=== PATIENT | female | born 1955 | race Caucasian/White ===

== ENCOUNTER 2020-08-09 11:01 | Outpatient (REF) | payer MEDICARE, BC, SELFPAY ==
--- NOTE | ~2020-08-09 | MM_ITS ---
EXAMINATION: MM SCREENING DIGITAL BREAST TOMOSYNTHESIS, BILATERAL CLINICAL INFORMATION: Screening. Asymptomatic. The lifetime risk of breast cancer based on the Tyrer-Cuzick Model is 5%. COMPARISON: Mammography: 03/09/2018, 01/08/2016 TECHNIQUE: Digital breast tomosynthesis is performed in both the craniocaudal and mediolateral oblique views along with computer-aided detection (CAD). Synthesized 2D images are generated from the tomosynthesis. FINDINGS: There are scattered areas of fibroglandular density (ACR BI-RADS breast composition Category b). There are no significant masses, abnormal calcifications, or other abnormalities. There are scattered calcifications present, similar in number and distribution. 2 biopsy clip markers are present mid upper outer left breast. The axilla and skin contours are unremarkable. There are no significant changes. MM/MM tomosynthesis screening BI IMPRESSION: No mammographic evidence of malignancy. ASSESSMENT: BI-RADS 2: Benign RECOMMENDATION: Routine annual mammography screening. This patient's information was entered into a reminder system with a target due date for their next mammogram.
== END 2020-08-09 11:02 | disposition home or self-care (01) ==
LOC: HO.MAMMO 11:01
PROVIDERS: PCP Internal Medicine; Visit Provider Internal Medicine
DX: Z12.31 Encounter for screening mammogram for malignant neoplasm of breast (principal)
CPT/HCPCS: 77063; 77067

== ENCOUNTER → 2023-04-05 10:45 | Outpatient (BNV) | payer MEDICARE, SELFPAY | PROVIDERS: Visit Provider Radiology Diagnostic Radiology | DX: Z12.31 Encounter for screening mammogram for malignant neoplasm of breast (principal) | CPT/HCPCS: 77063; 77067 ==

== ENCOUNTER 2023-04-05 10:49 | Outpatient (REF) | payer MEDICARE, SELFPAY ==
--- NOTE | ~2023-04-05 | MM_ITS ---
EXAMINATION: MM SCREENING DIGITAL BREAST TOMOSYNTHESIS, BILATERAL CLINICAL INFORMATION: Screening. Asymptomatic. COMPARISON: Mammography: This study is compared with prior exams dating back to 2013. TECHNIQUE: Digital breast tomosynthesis is performed in both the craniocaudal and mediolateral oblique views along with computer-aided detection (CAD). Synthesized 2D images are generated from the tomosynthesis. FINDINGS: There are scattered areas of fibroglandular density (ACR BI-RADS breast composition Category b). There are no significant masses, abnormal calcifications, or other abnormalities. There are 2 tissue markers present in the left breast from prior benign percutaneous biopsies. MM/MM tomosynthesis screening BI IMPRESSION: No mammographic evidence of malignancy. ASSESSMENT: BI-RADS BI-RADS 2 - Benign Findings RECOMMENDATION: Routine annual mammography screening. 1 year F/U This examination should not preclude the clinical evaluation of a suspicious palpable abnormality. This patient's information was entered into a reminder system with a target due date for their next mammogram.
== END 2023-04-05 10:50 | disposition home or self-care (01) ==
LOC: HO.MAMMO 10:49
PROVIDERS: Visit Provider Internal Medicine
DX: Z12.31 Encounter for screening mammogram for malignant neoplasm of breast (principal)
CPT/HCPCS: 77063; 77067

== ENCOUNTER 2023-09-08 12:55 | Outpatient (AMB) | payer MEDICARE, SELFPAY ==
--- NOTE | 2023-09-08 12:57 | A.OFFVIS_ITS ---
Vital Signs 09/08/23 12:59 Height 5 ft 4.09 in Weight 155 lb 6.814 oz BMI 26.6 BP 122/80 Blood Pressure Location Rt brachial Position Sitting Pulse 77 Pulse Source Pulse Oximeter Pulse Oximetry (%) 95 Oxygen Delivery Method Room Air Intake Visit Reasons: Joint Pain/medicare inactive Intake Note: New patient, externally referred by YIGN Portillo, presents to office today for joint pain. Joints affected: wrists, left middle finger, left ring finger, right index finger, right knee, left hip Pain began approx: 2 months ago Regional Manager Required: No Accompanied by: Self / Same As Patient Allergies amoxicillin Allergy (Unknown, Verified 09/08/23 13:01) Unknown nitrofurantoin [From Macrobid] Allergy (Unknown, Verified 09/08/23 13:01) Unknown Sulfa (Sulfonamide Antibiotics) Allergy (Unknown, Verified 09/08/23 13:01) Unknown HPI Comments Details: Ms. Zheng 68-year-old female, here on referral by PCP, presents today for evaluation of new onset hand and wrist pain. She has been experiencing pain in her hands, knees, shoulders, feet and hips pain. Most of her pains and hand swelling started about 2 months ago. It is usually worse in the a.m.. She describes morning stiffness that last more than an hour. She has also had swelling around her knees. She said sometimes there is redness and warmth over the joints. She has no improvement from [id number] pain relievers and has not tried any other form of treatment. She denies recent injury or trauma to the joints. She has PMH of hypothyroidism and hyperlipidemia --Mom has RA --new to patient - worse in the morning/ Could not move wrist at one point; --Takes Ibuprofen 200 mg x 2 at a time. - helps to take the edge off --hand pain started in Jun 2023, --upper arms hurt and can not lift right shoulders --diffuse swelling and tenderness to MCP bilateral 2nd and 3rd --Visitors from [place] and [facility] [place] --Son has gout. --RF negative, sed and CRP normal, uric acid normal --denies a symptom symptoms of CTD, denies red warm swollen joints elsewhere [facility] Medical History (Updated 09/23/23 @ 08:02 by TERRELL Brenner-BC) Bilateral foot pain Bilateral knee pain Bilateral hand swelling Insomnia Hypothyroidism, unspecified Hyperlipidemia, unspecified Anxiety Allergic rhinitis Surgical History (Updated 09/01/23 @ 14:45 by KULWINDER Rodríguez) History of surgery H/O hysterectomy with unilateral oophorectomy Hx of appendectomy H/O colonoscopy Family History (Updated 09/08/23 @ 13:00 by KULWINDER Rodríguez) Mother Type 2 diabetes mellitus without complication Brother Alcohol abuse Father Parkinson disease Social History (Updated 09/08/23 @ 13:00 by KULWINDER Rodríguez) Household Members: Spouse Alcohol intake: current Alcohol intake frequency: a few times a week Alcohol type: wine and other Patient Tobacco Use Status: Former Tobacco user 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 External ear normal. NOSE/SINUS:? Airflow through both nares, no nasal discharge, no bleeding THROAT:? Oral mucosa moist, no ulcerations NECK:? No thyromegaly or masses, no adenopathy, trachea midline. HEART:? Regular rhythm, S1-S2 heard, no murmurs, rubs or gallops. LUNG:? Clear to percussion and auscultation EXTREMITIES:? No edema, no calf tenderness, normal peripheral pulses. NEURO:? Oriented and alert x3.? No focal weakness.? Reflexes symmetric.? Gait normal. SKIN:? There are no skin lesions evident. No objective signs of Raynaud's phenomenon. JOINT EXAM: Cervical Spine:.? Full range of motion without pain; no tenderness. Thoracic Spine:.? No scoliosis.? No tenderness on palpation. Lumbar Spine:.? Alignment normal.? Full range of motion without pain, no tenderness. Chest Wall:.? No tenderness, swelling, increased warmth or erythema. Hands:.? Normal range of motion with tenderness, trace swelling to bilateral 2nd and 3rd MCP, but no increased warmth or erythema. Able to make a closed fist and has a some decrease in senior front end engineer strength. Wrists:.? Normal pain-free range of motion without tenderness, swelling, increased warmth or erythema. Elbows:. Normal pain-free range of motion without tenderness, swelling, increased warmth or erythema. Shoulders:.?? Full range of motion without pain. No tenderness, weakness, swelling, increased warmth or erythema. Hips:.? Full range of motion without pain. Hip bursa:.? No tenderness. Knees:.?? Normal pain-free range of motion without tenderness, swelling, increased warmth or erythema.? There is no effusion or crepitation Ankles:.? Normal pain-free range of motion without tenderness, swelling, increased warmth or erythema. Feet:.? Normal pain-free range of motion without tenderness, swelling, increased warmth or erythema. Tender points:? No tenderness to digital palpation at the occiput, trapezius, second rib, lateral epicondyle, knees, greater trochanter and gluteal area bilaterally. Results Reviewed Results Reviewed: 08/05/2023 Lyme negative BMP grossly normal TSH 5.0 (4.2) Urine grossly normal with trace albumin and trace leukocyte CBC grossly normal Uric acid 5.0 (7.5) CRP negative Assessment & Plan Assessment & Plan (1) Bilateral hand swelling: Code(s): M79.89 - Other specified soft tissue disorders Category: Medical (2) Pain of joint of both hands: Code(s): M25.541 - Pain in joints of right hand; M25.542 - Pain in joints of left hand (3) Bilateral knee pain: Code(s): M25.561 - Pain in right knee; M25.562 - Pain in left knee Category: Medical Qualifiers: Chronicity: chronic Qualified Code(s): M25.561 - Pain in right knee; M25.562 - Pain in left knee; G89.29 - Other chronic pain (4) Bilateral foot pain: Code(s): M79.671 - Pain in right foot; M79.672 - Pain in left foot Category: Medical Plan The present presents with swelling bilateral to 2nd and 3rd MCP. This is new onset and she offers that it may be due to the stress of her visitors at home. She does not have the clinical presentation of an underlying connective tissue disease, but this may be chondrocalcinosis but chondrocalcinosis never normally that have bilateral presentation simultaneously. Her uric acid level is normal and so is less likely gout. This can also be osteoarthritis. I will obtain a complete rheumatology panel and have some x-rays done for further evaluation. She also offers complaints with regards to her feet and knees which are unrelated to the onset of her hands swelling so I will obtain x-rays to evaluate for the extent of osteoarthritis. Orders: Orders Erythrocyte Sedimentation Rate 09/08/23 M25.541 - Pain in joints of right hand, M25.542 - Pain in joints of left hand, M79.89 - Other specified soft tissue disorders KLEBER Reflex Titer and Pattern 09/08/23 M25.541 - Pain in joints of right hand, M25.542 - Pain in joints of left hand, M79.89 - Other specified soft tissue disorders Anti-Centromere B Antibodies 09/08/23 M25.541 - Pain in joints of right hand, M25.542 - Pain in joints of left hand, M79.89 - Other specified soft tissue disorders Anti Extractable Nuclear Ag 09/08/23 M25.541 - Pain in joints of right hand, M25.542 - Pain in joints of left hand, M79.89 - Other specified soft tissue disorders Complement C3 09/08/23 M25.541 - Pain in joints of right hand, M25.542 - Pain in joints of left hand, M79.89 - Other specified soft tissue disorders Comprehensive Met. Panel 09/08/23 M25.541 - Pain in joints of right hand, M25.542 - Pain in joints of left hand, M79.89 - Other specified soft tissue disorders Creatine Kinase Total 09/08/23 M25.541 - Pain in joints of right hand, M25.542 - Pain in joints of left hand, M79.89 - Other specified soft tissue disorders Immunofixation Pnl, Serum 09/08/23 M25.541 - Pain in joints of right hand, M25.542 - Pain in joints of left hand, M79.89 - Other specified soft tissue disorders Immunoglobulins,IgG IgA IgM 09/08/23 M25.541 - Pain in joints of right hand, M25.542 - Pain in joints of left hand, M79.89 - Other specified soft tissue disorders Scleroderma 70 Antibody 09/08/23 M25.541 - Pain in joints of right hand, M25.542 - Pain in joints of left hand, M79.89 - Other specified soft tissue disorders Sjogren's Antibodies 09/08/23 M25.541 - Pain in joints of right hand, M25.542 - Pain in joints of left hand, M79.89 - Other specified soft tissue disorders Protein Electrophoresis, Serum 09/08/23 M25.541 - Pain in joints of right hand, M25.542 - Pain in joints of left hand, M79.89 - Other specified soft tissue disorders XR hand RT min 3V 09/08/23 M79.89 - Other specified soft tissue disorders, M25.561 - Pain in right knee, M25.562 - Pain in left knee Anti DNA DS Antibody 09/08/23 M25.541 - Pain in joints of right hand, M25.542 - Pain in joints of left hand, M79.89 - Other specified soft tissue disorders Complement C4 09/08/23 M25.541 - Pain in joints of right hand, M25.542 - Pain in joints of left hand, M79.89 - Other specified soft tissue disorders Complete Blood Count Auto Diff 09/08/23 M25.541 - Pain in joints of right hand, M25.542 - Pain in joints of left hand, M79.89 - Other specified soft tissue disorders C Reactive Protein 09/08/23 M25.541 - Pain in joints of right hand, M25.542 - Pain in joints of left hand, M79.89 - Other specified soft tissue disorders XR hand LT min 3V 09/08/23 M79.89 - Other specified soft tissue disorders, M25.561 - Pain in right knee, M25.562 - Pain in left knee XR knee RT 3V 09/08/23 M79.89 - Other specified soft tissue disorders, M25.561 - Pain in right knee, M25.562 - Pain in left knee XR knee LT 3V 09/08/23 M79.89 - Other specified soft tissue disorders, M25.561 - Pain in right knee, M25.562 - Pain in left knee Coding Level of Care Code New Pt Level 4 (47330) Diagnoses Bilateral hand swelling M79.89 Pain of joint of both hands M25.541; M25.542 Chronic pain of both knees M25.561; M25.562; G89.29 Chronicity: chronic Bilateral foot pain M79.671; M79.672
[2023-09-08 12:59] VITALS: BP 122/80; PULSE 77; O2SAT 95; BMI 26.6
== END 2023-09-08 13:47 | disposition home or self-care (01) ==
PROVIDERS: PCP Internal Medicine; Referring Provider Internal Medicine; Visit Provider Nurse Practitioner Family
DX: M79.89 Other specified soft tissue disorders (principal); M25.541 Pain in joints of right hand; M25.542 Pain in joints of left hand; M25.561 Pain in right knee; M25.562 Pain in left knee; G89.29 Other chronic pain; M79.671 Pain in right foot; M79.672 Pain in left foot
CPT/HCPCS: 99204

== ENCOUNTER → 2023-09-08 12:55 | Outpatient (BNVA) | payer MEDICARE, SELFPAY | PROVIDERS: PCP Internal Medicine; Referring Provider Internal Medicine; Visit Provider Nurse Practitioner Family | DX: M79.89 Other specified soft tissue disorders (principal); M25.541 Pain in joints of right hand; M25.542 Pain in joints of left hand; M25.561 Pain in right knee; M25.562 Pain in left knee; M79.671 Pain in right foot; M79.672 Pain in left foot; G89.29 Other chronic pain | CPT/HCPCS: 99202 ==

== ENCOUNTER 2023-12-29 12:48 | Outpatient (AMB) | payer MEDICARE, SELFPAY ==
--- NOTE | 2023-12-29 12:50 | MHC.OFFVIS ---
Vital Signs 12/29/23 12:55 Height 5 ft 4.09 in Weight 144 lb 6.444 oz BMI 24.7 BP 116/74 Blood Pressure Location Lt brachial Position Sitting Respiration 16 Pulse 74 Pulse Source Pulse Oximeter Pulse Oximetry (%) 97 Oxygen Delivery Method Room Air Intake Visit Reasons: Joint Pain/cm Intake Note: Patient presents for joint pain. lots of pain all over joints. Allergies amoxicillin Allergy (Unknown, Verified 12/29/23 12:54) Unknown nitrofurantoin [From Macrobid] Allergy (Unknown, Verified 12/29/23 12:54) Unknown Sulfa (Sulfonamide Antibiotics) Allergy (Unknown, Verified 12/29/23 12:54) Unknown Medication List - Last Reconciled 12/29/23 by Esteban Griffiths MD fluticasone propionate 44 mcg/actuation 1 puff inhalation ONCE PRN multivit with min-folic acid 200 mcg (Adult Multivitamin Gummies) tabs PO prednisone Take 4 tabs by mouth once daily for 1 week, 3 tabs daily for 1 week, 2 tabs daily for 1 week, 1 tab daily for 1 week then stop zinc glycinate mg PO HPI Comments Details: Patient returns for follow-up. She did not do the requested blood work or x-rays. She also did not take the prednisone and she stated that she had a long viral illness that lasted weeks. She continues to have generalized stiffness, of her hands, wrists, knees, feet. She can hardly make a fist with her hands. She feels that her fingers are swollen. She states that the stiffness is generally more severe in the morning. She states that she gets pain the bottom of her toes when she when she gets up in the middle of the night. Initial history by Sonam: Ms. Zheng 68-year-old female, here on referral by PCP, presents today for evaluation of new onset hand and wrist pain. She has been experiencing pain in her hands, knees, shoulders, feet and hips pain. Most of her pains and hand swelling started about 2 months ago. It is usually worse in the a.m.. She describes morning stiffness that last more than an hour. She has also had swelling around her knees. She said sometimes there is redness and warmth over the joints. She has no improvement from [id number] pain relievers and has not tried any other form of treatment. She denies recent injury or trauma to the joints. She has PMH of hypothyroidism and hyperlipidemia --Mom has RA --new to patient - worse in the morning/ Could not move wrist at one point; --Takes Ibuprofen 200 mg x 2 at a time. - helps to take the edge off --hand pain started in Jun 2023, --upper arms hurt and can not lift right shoulders --diffuse swelling and tenderness to MCP bilateral 2nd and 3rd --Visitors from [place] and stress --Son has gout. --RF negative, sed and CRP normal, uric acid normal --denies a symptom symptoms of CTD, denies red warm swollen joints elsewhere PFSH Medical History Bilateral foot pain Bilateral knee pain Bilateral hand swelling Insomnia Hypothyroidism, unspecified Hyperlipidemia, unspecified Anxiety Allergic rhinitis Surgical History History of surgery H/O hysterectomy with unilateral oophorectomy Hx of appendectomy H/O colonoscopy Family History Mother Type 2 diabetes mellitus without complication Rheumatoid arthritis Brother Alcohol abuse Father Parkinson disease Son Gout Social History Household Members: Spouse Alcohol intake: current Alcohol intake frequency: a few times a week Alcohol type: wine and other Patient Tobacco Use Status: Former Tobacco user 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 Review of Systems [facility] [place] Reports arthralgias, Reports joint swelling and Reports stiffness Physical Exam Vital Signs: Last Vital Signs Pulse 74 12/29/23 12:55 Resp 16 12/29/23 12:55 BP 116/74 12/29/23 12:55 Pulse Ox 97 12/29/23 12:55 Oxygen Delivery Method Room Air 12/29/23 12:55 BMI result Body Mass Index 24.7 Const General: cooperative, healthy appearing and comfortable Nutritional Appearance: average body habitus Orientation/consciousness: patient oriented x3 Limitations: no limitations HEENT Head: Yes normocephalic and Yes atraumatic Mouth: moist mucous membranes Resp Effort & Inspection: normal respiratory effort and able to speak in complete sentences Auscultation: clear to auscultation bilaterally Skin General skin exam: no rashes or lesions noted Neuro General: patient oriented x3 Extrem Other: Mild puffiness of her fingers Significant osteoarthritic changes of both hands with prominent Heberden's nodes Significantly reduced flexion at the PIP is of both hands Bilateral wrist pain with flexion-extension Negative MCP squeeze test bilaterally no elbow pain with flexion-extension Normal nailfold capillaroscopy Bilateral knee pain with full flexion No ankle swelling or tenderness bilaterally Negative MTP squeeze test bilaterally Bilateral large bunions Results Reviewed Results Reviewed: 08/05/2023 Lyme negative BMP grossly normal TSH 5.0 (4.2) Urine grossly normal with trace albumin and trace leukocyte CBC grossly normal Uric acid 5.0 (7.5) CRP negative Assessment & Plan Assessment & Plan (1) Polyarthralgia: Code(s): M25.50 - Pain in unspecified joint Category: Medical Plan: This is a 68-year-old female who presents with abrupt onset of diffuse joint stiffness, mild swelling and pain. There is some suggestion of inflammatory arthritis in addition to her osteoarthritis. Will order comprehensive serology to screen for underlying autoimmune rheumatic disease. Check x-rays of involved joints Start prednisone therapeutic taper trial Patient is anxiety proven, advised patient to lower the prednisone dose if she feels anxious Plan I spent 46 minutes reviewing patient's chart, evaluating patient, ordering diagnostic workup, counseling patient and documenting in the chart Orders: Orders Cyclic Citrullinated Peptide Today M25.50 - Pain in unspecified joint XR foot LT min 3V Today M79.671 - Pain in right foot, M79.672 - Pain in left foot Rheumatoid Factor Today M25.50 - Pain in unspecified joint HLA B27 Today M25.50 - Pain in unspecified joint XR foot RT min 3V Today M79.671 - Pain in right foot, M79.672 - Pain in left foot Medications: New prednisone Take 4 tabs by mouth once daily for 1 week, 3 tabs daily for 1 week, 2 tabs daily for 1 week, 1 tab daily for 1 week then stop 70 tabs 0RF Coding Level of Care Code Est Pt Level 5 (60239) Diagnoses Polyarthralgia M25.50
[2023-12-29 12:55] VITALS: BP 116/74; PULSE 74; RESP 16; O2SAT 97; BMI 24.7
== END 2023-12-29 13:19 | disposition home or self-care (01) ==
PROVIDERS: PCP Internal Medicine; Visit Provider Student in an Organized Health Care Education/Training Program
DX: M25.50 Pain in unspecified joint (principal)
CPT/HCPCS: 99215

== ENCOUNTER → 2023-12-29 12:48 | Outpatient (BNVA) | payer MEDICARE, BC, SELFPAY | PROVIDERS: PCP Internal Medicine; Visit Provider Student in an Organized Health Care Education/Training Program | DX: M25.50 Pain in unspecified joint (principal); Z79.52 Long term (current) use of systemic steroids | CPT/HCPCS: 99212 ==

== ENCOUNTER 2024-02-24 11:59 | Outpatient (REF) | payer MEDICARE, SELFPAY ==
--- NOTE | ~2024-02-24 | XR_ITS ---
EXAMINATION: XR FOOT, RIGHT CLINICAL INFORMATION: M79.671 - Pain in right foot COMPARISON: None available. TECHNIQUE: AP, lateral, and oblique views of the right foot. FINDINGS: There is mild diffuse osteopenia. There is no fracture, dislocation, or suspicious bone lesion. There is moderate spurring of the medial eminence of the first metatarsal head, with overlying soft tissue swelling, consistent with bunion formation. There is mild hallux valgus with mild to moderate osteoarthrosis at the first MTP joint. Otherwise, the midfoot and hindfoot appear normal. Normal plantar arch. No additional soft tissue abnormalities. XR/XR foot RT min 3V IMPRESSION: 1. No acute findings right foot. Diffuse osteopenia. 2. Moderate bunion formation, mild relative valgus, and arthritic changes first MTP joint. 3. Tiny plantar calcaneal spur. Electronically signed by: Davy Adamson MD 05/04/2024 03:24 PM [facility] [place], [place]
--- NOTE | ~2024-02-24 | XR_ITS ---
EXAMINATION: XR FOOT, LEFT CLINICAL INFORMATION: M79.671 - Pain in right foot knee: Pain in left foot. COMPARISON: None available. TECHNIQUE: AP, lateral, and oblique views of the left foot. FINDINGS: There is mild diffuse osteopenia. There is no fracture, dislocation, or suspicious bone lesion. There is moderate spurring of the medial eminence of the first metatarsal head, with overlying soft tissue swelling, consistent with bunion formation. There is mild hallux valgus with mild to moderate osteoarthrosis at the first MTP joint. Otherwise, the midfoot and hindfoot appear normal. Tiny plantar calcaneal spur. No additional soft tissue abnormalities. XR/XR foot LT min 3V IMPRESSION: 1. No acute findings left foot. Diffuse osteopenia. 2. Moderate bunion formation, mild relative valgus, and arthritic changes first MTP joint. 3. Tiny plantar calcaneal spur. Electronically signed by: Davy Adamson MD 05/04/2024 02:59 PM [facility] [place]
[2024-02-24 12:19] LABS: MANUAL DIFF FLAG NO
[2024-02-24 12:33] LABS: Basophils Percent Auto 0.3 % (0-2); Eosinophils Absolute Auto 0.1 X10*3/uL (0.0-0.4); Eosinophils Percent Auto 1.9 % (0-4); Hemoglobin 14.1 g/dl (12.0-16.0); Imm Gran Abs Auto 0.02 X10*3/uL (0.00-0.03); Imm Gran Pct Auto 0.3 % (0.0-0.4); Lymphocytes Absolute Auto 1.9 X10*3/uL (1.2-4.9); Lymphocytes Percent Auto 33.2 % (20-40); Mean Corpuscular HGB Conc 33.6 g/dl (31.0-35.0); Mean Corpuscular Hemoglobin 30.7 pg (27.0-33.0); Mean Corpuscular Volume 91.3 fL (80.0-98.0); Mean Platelet Volume 8.8 fL (9.4-12.3); Monocytes Absolute Auto 0.4 X10*3/uL (0.1-1.2); Monocytes Percent Auto 6.6 % (2-11); Neutrophils Absolute Auto 3.3 x10*3/uL (2.0-8.3); Neutrophils Percent Auto 57.7 % (45-73); Platelet Count 306 X10*3/uL (160-400); Red Cell Distribution Width 13.2 % (11.0-16.0); White Blood Count 5.7 X10*3/uL (4.8-10.8)
[2024-02-24 13:13] LABS: Rheumatoid Factor < 13.0 IU/mL (<15.0)
[2024-02-24 13:14] LABS: Alanine Aminotransferase 15 U/L (0-31); Albumin Level 4.1 g/dL (3.5-5.0); Alkaline Phosphatase 91 U/L (39-117); Anion Gap 11 (12-20); Aspartate Amino Transferase 18 U/L (5-31); Bilirubin Total 0.5 mg/dL (0.0-1.0); Blood Urea Nitrogen 17 mg/dL (9-16); C Reactive Protein 0.63 mg/dL (< or = 0.50); Calcium 9.7 mg/dL (8.4-10.2); Carbon Dioxide 27 mmol/L (22-29); Chloride 107 mmol/L (96-108); Estimated Glomerular Filt Rate > 60; Glucose Random 96 mg/dL (60-115); Potassium 3.9 mmol/L (3.3-5.1); Sodium 141 mmol/L (135-145); Total Protein 7.3 g/dL (6.5-8.0)
[2024-02-24 13:16] LABS: Erythrocyte Sedimentation Rate 10 MM/HR (0-20)
[2024-02-27 10:38] LABS: Complement C3 146 mg/dL (83-193)
[2024-02-27 14:59] LABS: Anti Nuclear Antibody Screen NEGATIVE (NEGATIVE)
[2024-02-27 19:54] LABS: Anti DNA DS Antibody <1 IU/mL; Antibody to SS-A Antigen <1.0 NEG AI (<1.0 NEG); Antibody to SS-B Antigen <1.0 NEG AI (<1.0 NEG); SM/Ribonucleoprotein Ab <1.0 NEG AI (<1.0 NEG); Scleroderma 70 Antibody <1.0 NEG AI (<1.0 NEG); Smith Protein <1.0 NEG AI (<1.0 NEG)
[2024-02-28 11:28] LABS: Prot Elec - Albumin 3.8 g/dL (3.8-4.8); Prot Elec - Alpha1 0.3 g/dL (0.2-0.3); Prot Elec - Alpha2 0.7 g/dL (0.5-0.9); Prot Elec - Beta 1 0.3 g/dL (0.4-0.6); Prot Elec - Beta 2 0.3 g/dL (0.2-0.5); Prot Elec - Gamma 0.9 g/dL (0.8-1.7); Prot Elec - Total Protein 6.3 g/dL (6.1-8.1)
[2024-02-28 13:09] LABS: Cyclic Citrullinated Peptide >250 UNITS
[2024-02-28 17:54] LABS: IgA 85 mg/dL (70-320); IgG 1128 mg/dL (600-1540); IgM 124 mg/dL (50-300)
== END 2024-02-24 12:00 | disposition home or self-care (01) ==
LOC: HO.LAB 11:59
PROVIDERS: Nurse Practitioner Family; PCP Internal Medicine; Visit Provider Student in an Organized Health Care Education/Training Program
DX: M25.541 Pain in joints of right hand (principal); M25.542 Pain in joints of left hand; M79.89 Other specified soft tissue disorders; M25.50 Pain in unspecified joint; M79.671 Pain in right foot; M79.672 Pain in left foot
CPT/HCPCS: 36415; 73630; 80053; 82550; 82784; 84165; 85025; 85652; 86038; 86140; 86160; 86200; 86225; 86235; 86334; 86431; 86812

== ENCOUNTER → 2024-02-24 12:21 | Outpatient (BNV) | payer MEDICARE, SELFPAY | PROVIDERS: PCP Internal Medicine; Visit Provider Radiology Diagnostic Radiology | DX: M77.31 Calcaneal spur, right foot (principal); M21.611 Bunion of right foot; M77.32 Calcaneal spur, left foot; M21.612 Bunion of left foot | CPT/HCPCS: 73630 ==

== ENCOUNTER 2024-03-01 11:49 | Outpatient (REF) | payer MEDICARE, SELFPAY ==
--- NOTE | ~2024-03-01 | XR_ITS ---
EXAMINATION: XR HAND, LEFT CLINICAL INFORMATION: M79.89 - Other specified soft tissue disorders COMPARISON: None available. TECHNIQUE: PA, lateral, and oblique views of the left hand. FINDINGS: Mild osteopenia present. No fracture, dislocation, or suspicious bone lesion. There is normal alignment of the hand and carpal bones. Mild to moderate narrowing of the radiocarpal joint. Moderate osteoarthrosis in the STT joints and moderate to severe changes in the first CMC joint. No joint erosions or periarticular osteopenia. Mild diffuse MCP joint and DIP joint osteoarthritis, with minimal changes in the MCP joints. There is no discrete soft tissue abnormality. XR/XR hand LT min 3V IMPRESSION: 1. No acute findings left hand. 2. Degenerative changes of the hand and wrist as detailed. Electronically signed by: Davy Adamson MD 05/04/2024 03:19 PM [facility]
--- NOTE | ~2024-03-01 | XR_ITS ---
EXAMINATION: XR KNEE, RIGHT CLINICAL INFORMATION: M79.89 - Other specified soft tissue disorders COMPARISON: None available. TECHNIQUE: Three views of the right knee. FINDINGS: Normal bony mineralization. Normal alignment. No fracture, dislocation, or suspicious bone lesion. Mild medial and lateral joint space narrowing, with minimal/subtle marginal osteophytic spurs. Moderate, more significant patellofemoral compartment degenerative arthritis, with moderate narrowing of the lateral facet articulation with the femoral notch. Mild spurring of the tibial spines. No definite significant joint effusion seen. Soft tissues appear normal. XR/XR knee RT 3V IMPRESSION: 1. No acute findings of the right knee. 2. Mild medial and lateral compartment, and moderate patellofemoral compartment osteoarthrosis. Electronically signed by: Davy Adamson MD 05/04/2024 03:09 PM [facility] ARMSTR[facility]
--- NOTE | ~2024-03-01 | XR_ITS ---
EXAMINATION: XR HAND, RIGHT CLINICAL INFORMATION: M79.89 - Other specified soft tissue disorders COMPARISON: None available. TECHNIQUE: PA, lateral, and oblique views of the right hand. FINDINGS: Mild osteopenia present. No fracture, dislocation, or suspicious bone lesion. There is normal alignment of the hand and carpal bones. Mild to moderate narrowing of the radiocarpal joint. Mild blunting of the ulnar styloid. Moderate osteoarthrosis in the STT joints and moderate to severe changes in the first CMC joint. No joint erosions or periarticular osteopenia. Mild diffuse MCP joint and DIP joint osteoarthritis, with minimal changes in the MCP joints. There is no discrete soft tissue abnormality. XR/XR hand RT min 3V IMPRESSION: 1. No acute findings right hand. 2. Degenerative changes of the hand and wrist as detailed. Electronically signed by: Davy Adamson MD 05/04/2024 03:16 PM [facility]
--- NOTE | ~2024-03-01 | XR_ITS ---
EXAMINATION: XR KNEE, LEFT CLINICAL INFORMATION: M79.89 - Other specified soft tissue disorders COMPARISON: None available. TECHNIQUE: Three views of the left knee. FINDINGS: Normal bony mineralization. Normal alignment. No fracture, dislocation, or suspicious bone lesion. Mild medial compartment joint space narrowing, with minimal/subtle marginal osteophytic spurs. Lateral compartment appears preserved. Moderate, more significant patellofemoral compartment degenerative arthritis, with moderate narrowing of the patellar articulation with the femoral notch. Mild spurring of the tibial spines. No definite significant joint effusion seen. Soft tissues appear normal. XR/XR knee LT 3V IMPRESSION: 1. No acute findings of the left knee. 2. Mild medial compartment, and moderate patellofemoral compartment osteoarthrosis. Electronically signed by: Davy Adamson MD 05/04/2024 03:12 PM [facility]
== END 2024-03-01 11:50 | disposition home or self-care (01) ==
LOC: HO.XRAY 11:49
PROVIDERS: PCP Internal Medicine; Visit Provider Student in an Organized Health Care Education/Training Program
DX: M79.89 Other specified soft tissue disorders (principal); M25.561 Pain in right knee; M25.562 Pain in left knee; M05.9 Rheumatoid arthritis with rheumatoid factor, unspecified; M15.9 Polyosteoarthritis, unspecified; Z79.631 Long term (current) use of antimetabolite agent
CPT/HCPCS: 73130; 73562; 99212

== ENCOUNTER 2024-03-01 11:49 | Outpatient (AMB) | payer MEDICARE, SELFPAY ==
--- NOTE | 2024-03-01 11:50 | A.OFFVIS_ITS ---
Vital Signs 03/01/24 11:54 03/01/24 11:56 Height 5 ft 4.9 in Weight 148 lb 5.938 oz 148 lb 5.938 oz BMI 24.8 BP 112/72 Blood Pressure Location Rt brachial Position Sitting Pulse 77 Pulse Source Pulse Oximeter Pulse Oximetry (%) 97 Oxygen Delivery Method Room Air Intake Visit Reasons: RA/OA Intake Note: Patient presents for RA. Allergies amoxicillin Allergy (Unknown, Verified 03/01/24 11:54) Unknown nitrofurantoin [From Macrobid] Allergy (Unknown, Verified 03/01/24 11:54) Unknown Sulfa (Sulfonamide Antibiotics) Allergy (Unknown, Verified 03/01/24 11:54) Unknown Medication List - Last Reconciled 03/01/24 by Esteban Griffiths MD fluticasone propionate 44 mcg/actuation 1 puff inhalation ONCE PRN multivit with min-folic acid 200 mcg (Adult Multivitamin Gummies) tabs PO HPI Comments Details: Patient returns for follow-up after completion of her diagnostic workup. She states that when she took prednisone she had about 90% improvement overall. She stopped taking it about a month ago. It caused some palpitations. She continues to have some pain and stiffness of her fingers, feet, knees especially at night. Initial history by Sonam: Ms. Zheng 68-year-old female, here on referral by PCP, presents today for evaluation of new onset hand and wrist pain. She has been experiencing pain in her hands, knees, shoulders, feet and hips pain. Most of her pains and hand swelling started about 2 months ago. It is usually worse in the a.m.. She describes morning stiffness that last more than an hour. She has also had swelling around her knees. She said sometimes there is redness and warmth over the joints. She has no improvement from [id number]-[id number] pain relievers and has not tried any other form of treatment. She denies recent in jury or trauma to the joints. She has PMH of hypothyroidism and hyperlipidemia --Mom has RA --new to patient - worse in the morning/ Could not move wrist at one point; --Takes Ibuprofen 200 mg x 2 at a time. - helps to take the edge off --hand pain started in Jun 2023, --upper arms hurt and can not lift right shoulders --diffuse swelling and tenderness to MCP bilateral 2nd and 3rd --Visitors [facility] [place] [facility] --Son has gout. --RF negative, sed and CRP normal, uric acid normal --denies a symptom symptoms of CTD, denies red warm swollen joints elsewhere [facility] Medical History Insomnia Hypothyroidism, unspecified Hyperlipidemia, unspecified Anxiety Allergic rhinitis Surgical History History of surgery H/O hysterectomy with unilateral oophorectomy Hx of appendectomy H/O colonoscopy Family History Mother Type 2 diabetes mellitus without complication Rheumatoid arthritis Brother Alcohol abuse Father Parkinson disease Son Gout Social History Household Members: Spouse Alcohol intake: current Alcohol intake frequency: a few times a week Alcohol type: wine and other Patient Tobacco Use Status: Former Tobacco user 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 Review of Systems [facility] [place] Reports arthralgias, Reports joint swelling and Reports stiffness Physical Exam Vital Signs: BMI result Body Mass Index 24.8 Const General: cooperative, healthy appearing and comfortable Nutritional Appearance: average body habitus Orientation/consciousness: patient oriented x3 Limitations: no limitations HEENT Head: Yes normocephalic and Yes atraumatic Mouth: moist mucous membranes Resp Effort & Inspection: normal respiratory effort and able to speak in complete sentences Skin General skin exam: no rashes or lesions noted Neuro General: patient oriented x3 Extrem Other: Subtle right wrist swelling Mild puffiness of her fingers Significant osteoarthritic changes of both hands with prominent Heberden's nodes Significantly reduced flexion at the PIP is of both hands Bilateral wrist pain with flexion-extension Negative MCP squeeze test bilaterally no elbow pain with flexion-extension Normal nailfold capillaroscopy Bilateral knee pain with full flexion No ankle swelling or tenderness bilaterally Negative MTP squeeze test bilaterally Bilateral large bunions Results Reviewed Results Reviewed: 08/05/2023 Lyme negative BMP grossly normal TSH 5.0 (4.2) Urine grossly normal with trace albumin and trace leukocyte CBC grossly normal Uric acid 5.0 (7.5) CRP negative Assessment & Plan Assessment & Plan (1) Seropositive rheumatoid arthritis: Comment: -ve +++CCP dx 02/2024 Code(s): M05.9 - Rheumatoid arthritis with rheumatoid factor, unspecified Category: Medical Plan: This is a 68-year-old female who presents for evaluation of multiple joint pain, swelling and stiffness. On exam she has multiple swollen and tender joints. Symptoms respond dramatically to prednisone. Labs showed mildly elevated CRP and positive anti CCP antibody. Clinical picture consistent with new onset seropositive rheumatoid arthritis. Discussed rheumatoid arthritis and its management We will need to start DMARDs. Discussed risks and benefits of methotrexate Start methotrexate 15 mg once weekly for 2 weeks then 20 mg once weekly Start folic acid 1 mg daily Labs before next visit in 2 months. Complete x-rays of hands and knees today (2) FPC methotrexate user: Code(s): Z79.631 - FPC (current) use of antimetabolite agent Category: Medical Plan: Discussed potential side effects of methotrexate including mouth sores, fatigue, no risk of pneumonitis, cytopenias, liver inflammation. Patient consumes 2-3 alcoholic beverages daily. Advised patient to cut down to 1 alcoholic beverage daily and we will monitor her safety labs regularly (3) Generalized osteoarthritis: Code(s): M15.9 - Polyosteoarthritis, unspecified Category: Medical Plan I spent 30 minutes reviewing patient's chart, evaluating patient, ordering diagnostic workup, counseling patient and documenting in the chart Orders: Orders XR knee LT 3V Today M25.561 - Pain in right knee, M25.562 - Pain in left knee, M79.89 - Other specified soft tissue disorders C Reactive Protein 2 Months M05.9 - Rheumatoid arthritis with rheumatoid factor, unspecified, M15.9 - Polyosteoarthritis, unspecified, 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 XR hand LT min 3V Today M25.561 - Pain in right knee, M25.562 - Pain in left knee, M79.89 - Other specified soft tissue disorders XR hand RT min 3V Today M25.561 - Pain in right knee, M25.562 - Pain in left knee, M79.89 - Other specified soft tissue disorders XR knee RT 3V Today M25.561 - Pain in right knee, M25.562 - Pain in left knee, M79.89 - Other specified soft tissue disorders Complete Blood Count Auto Diff 2 Months M05.9 - Rheumatoid arthritis with rheumatoid factor, unspecified, M15.9 - Polyosteoarthritis, unspecified, 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
[2024-03-01 11:56] VITALS: BP 112/72; PULSE 77; O2SAT 97; BMI 24.8
== END 2024-03-01 12:43 | disposition home or self-care (01) ==
PROVIDERS: PCP Internal Medicine; Visit Provider Student in an Organized Health Care Education/Training Program
DX: M05.79 Rheumatoid arthritis with rheumatoid factor of multiple sites without organ or systems involvement (principal); Z79.631 Long term (current) use of antimetabolite agent; M15.9 Polyosteoarthritis, unspecified
CPT/HCPCS: 99214

== ENCOUNTER → 2024-03-01 12:26 | Outpatient (BNV) | payer MEDICARE, SELFPAY | PROVIDERS: PCP Internal Medicine; Visit Provider Radiology Diagnostic Radiology | DX: M17.0 Bilateral primary osteoarthritis of knee (principal); M79.89 Other specified soft tissue disorders | CPT/HCPCS: 73130; 73562 ==

== ENCOUNTER 2024-11-28 12:43 | Outpatient (AMB) | payer MEDICARE, SELFPAY ==
--- OUTSIDE RECORDS SUMMARY | 2024-07-02 06:30 | XMS_ITS ---
Author Organization [facility] Address [address] [place] [address] Care Team Providers Care Field Care Advocate Name Role Phone Yanet Cruz Primary Care Provider Keegan Quigley, Nita Unavailable [phone] Allergies Allergen (clinical drug ingredient) Drug/Non Drug Allergy documented on EMR Reaction Allergy Type Onset Date Status sulfamethoxazole / trimethoprim Bactrim Unknown Drug Allergy Active Penicillin Unknown Drug Allergy Active Medications Medication SIG (Take, Route, Frequency, Duration) Notes Start Date End Date Status LORazepam Active Social History Tobacco Use: Social History Observation Description Date Details (start date - stop date) Former Smoker NA - NA Tobacco use other than smoking: Question Answer Notes Are you an other tobacco user? No Tobacco Control (Standard) Question Answer Notes Tobacco use: Former smoker Additional Findings: Tobacco non-user Current no nsmoker AUDIT-C (Standard) Question Answer Notes Did you have a drink contain ing alcohol in the past year? Yes How often did you have a dri nk containing alcohol in the past year? Never (0 point) How many drinks did you have on a typical day when you were drinking in the past year? 1 or 2 drinks (0 point) How often did you have six o r more drinks on one occasion in the past year? Never (0 point) Points 0 Interpretation Negative Encounters Encounter Location Date Provider Diagnosis [facility] [address] [place] [address] 07/02/2024 Nita Black Plan Of Treatment No Information Progress Notes * Yuli VIVARDOB:07/1954 (69 yo F)Acc No.[id number]:07/02/2024 Progress Notes Patient: Yuli DOBBS Provider: Sachin Quigley DPM :1955 A ge:69 Y S ex:Female Date:07/02/2024 Address:[address] [place] [address], [place], [id number] Pcp:Yanet Cruz Subjective: * Chief Complaints: * * ROS: G eneral/Constitutional: Nausea d enies. V omiting d enies. H supa Thirst d enies. L oss appetite d enies. C hills d enies. F atigue a dmits.?Fever d enies. N ight Sweats d enies. U nexplained weight loss d enies. U nexplained weight gain d enies. H EENTM: Dentures d enies. D izziness d enies. G lasses/contacts a dmits. R etinopathy d enies. B lurred/double vision d enies. T MJ?denies. D ischarge/drainage d enies. I mplants d enies. S ore throat d enies. D ental implants d enies. H jo of hearing d enies. D ifficulty chewing/swallowing/speaking d enies. N ose bleeds d enies. S ore mouth d enies. ? R espiratory: On Oxygen d enies. P neumonia/pleurisy d enies.?Bronchitis d enies. E mphysema d enies. C oughing d enies. C ough blood?denies. S hortness of breath d enies. W heezing d enies. C ardiovascular: Pacemaker d enies. M RN NEONATAL ICU d enies. W PW d enies. C HF d enies. H eart attack d enies. S eptal defect d enies. R apid beat d enies. C hest pain d enies. A trial Fib. d enies. M urmur/Palpitations d enies. G astrointestinal: Hemorrhoids d enies. S tomach/Abdominal pain a dmits. D ark blood stool d enies. I rritable bowel d enies. C onstipation a dmits. D iarrhea a dmits. H ematology: Swelling d enies. C lots d enies. V aricose Veins d enies. B ruising d enies. B leeding problem d enies. G enitourinary: Blood urine d enies. F requent/Painfu/urination/bladder control d enies. K idney stones d enies. I nfection (UTI) d enies. N ephropathy d enies. s ex trans dis (STD) d enies. P rostate d enies. M usculoskeletal: Hammertoes d enies. B unions a dmits. B ack Pain d enies. M uscle Cramps/ Resting a dmits. M uscle cramps / walking d enies.?Generalized aches and pains d enies. W eakness d enies. I nteg.: [place]cl[place] d enies. S cars d enies. C orns/calluses?denies. I ngrown nails d enies. P ainful nails d enies. O pen Sores d enies. R ashes d enies. N eurologic: Difficulty sleeping d enies. B rain disorder d enies. N umbness d enies. B alance trouble d enies. C onfusion d enies. F ainting/blackouts d enies. T ingling d enies. T remors d enies. * Medical History: A nxiety, Arthritis, Cataracts, Headaches/Migraines, Osteoporosis, Sinusitis, Thyroid, Measles, Mumps, Chicken pox. * Surgical History: h ysterectomy , ovarian cyst 2000, appendectomy , prolapse repair . * Family History: M other: , kidney/liver disease, diagnosed with Other malignant neoplasm of unspecified site, Diabetic - NIDDM, Unspecified essential hypertension. F ather: . M aternal Grand Mother: diagnosed with Family history of arthritis. * Social History: T obacco Use: T obacco use other than smoking A re you an other tobacco user? N o Tobacco Control (Standard) T obacco use: F ormer smoker A dditional Findings: Tobacco non-user C urrent nonsmoker D rugs/Alcohol: D rugs H ave you used drugs other than those for medical reasons in the past 12 months? N o M iscellaneous: C affeine: yes. Children: yes, 1. Exercise: yes, walking. Marital status: . 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 D rug/Alcohol: A HECTOR-C (Standard) D id you have a drink containing alcohol in the past year? Y es H ow often did you have a drink containing alcohol in the past year? N ever (0 point) H ow many drinks did you have on a typical day when you were drinking in the past year? 1 or 2 drinks (0 point) H ow often did you have six or more drinks on one occasion in the past year? N ever (0 point) P oints 0 I nterpretation N egative * Medications: T aking LORazepam * Allergies: P enicillin, Bactrim. Objective: * Vitals: Assessment: Plan: * Treatment: * Images: * The named appointment provid er may or may not be the originator of this progress note, and it is not deemed complete until electronically signed by the appointment provider. Sign off status: Pending * Provider: Sachin Quigley DPM Date: 0 07/02/2024 Generated for Gomez white/Marisa/Magda on: 0 11/28/2024 01:12 PM EDT
--- NOTE | 2024-11-28 12:46 | MHC.OFFVIS ---
Vital Signs 11/28/24 12:47 Height 5 ft 4.9 in Weight 148 lb 9.465 oz BMI 24.8 BP 100/80 Blood Pressure Location Lt brachial Position Sitting Pulse 72 Pulse Source Pulse Oximeter Pulse Oximetry (%) 99 Oxygen Delivery Method Room Air Intake Visit Reasons: RA/OA Intake Note: Patient presents for RA/OA follow up. Allergies Penicillins Allergy (Mild, Verified 11/28/24 12:53) Hives amoxicillin Allergy (Unknown, Verified 11/28/24 12:50) Unknown nitrofurantoin (From Macrobid) Allergy (Unknown, Verified 11/28/24 12:50) Unknown Sulfa (Sulfonamide Antibiotics) Allergy (Unknown, Verified 11/28/24 12:50) Unknown HPI HPI RA/OA: Details: She has pain and swelling in hands. She is unable close her hands. Hard to open jars. She has pain in feet, shoulders and intermittent right knee swelling. Takes ibuprofen 400mg PRN joint pain. MS few hours She did not take MTX after her last visit 02/2024 due to fear of side effects. She completed tx for UTI few months ago. [facility] Medical History Insomnia Hypothyroidism, unspecified Hyperlipidemia, unspecified Anxiety Allergic rhinitis Surgical History History of surgery H/O hysterectomy with unilateral oophorectomy Hx of appendectomy H/O colonoscopy Family History Mother Type 2 diabetes mellitus without complication Rheumatoid arthritis Brother Alcohol abuse Father Parkinson disease Son Gout Social History Household Members: Spouse Alcohol intake: current Alcohol intake frequency: a few times a week Alcohol type: wine and other Patient Tobacco Use Status: Former Tobacco user Current occupation: [employer] Physical Exam Vital Signs: Last Vital Signs Pulse 72 11/28/24 12:47 BP 100/80 11/28/24 12:47 Pulse Ox 99 11/28/24 12:47 Oxygen Delivery Method Room Air 11/28/24 12:47 BMI result Body Mass Index 24.8 Const Other: General: Comfortable CVS: RRR Respiratory: clear to auscultation bilaterally. Good respiratory effort Skin: No lesions seen MSK: Tender to palpate right 3rd MCP. She has chronic synovial thickening of right 2nd and 3rd MCP. Volar subluxation of bilateral MCPs. Heberden nodes present. 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 Shoulder abduction 170 degrees with good external rotation. She has limited full internal rotation. Right knee mild effusion present, cool. Normal range of motion of lower extremities. No MTP tenderness. Bilateral valgus valgus deformity present. Assessment & Plan Assessment & Plan (1) Seropositive rheumatoid arthritis: Comment: Uncontrolled inflammatory arthritis. DMARD naive. She is afraid of starting methotrexate due to fear of side effects. We discussed importance of DMARD therapy to control current symptoms of inflammatory arthritis and prevent progression of disease including irreversible joint damage. 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 We discussed side effects, benefits of controlling her chronic autoimmune disease and drug monitoring on monotherapy with methotrexate or hydroxychloroquine. Methotrexate is first-line treatment for rheumatoid arthritis and has been shown to prevent radiographic progression of rheumatoid arthritis. Best next step for patient will be if she is able to avoid alcohol to try methotrexate. Answered patient's questions to her satisfaction. Rheumatology history: Deforming, seropositive (CCP) rheumatoid arthritis diagnosed April 2024. Initial symptoms improved with a course of prednisone. Code(s): M05.9 - Rheumatoid arthritis with rheumatoid factor, unspecified Category: Medical Plan: Information on methotrexate and hydroxychloroquine given to patient to discuss with her Baseline labs ordered Patient will call office when she is ready to start DMARD therapy Return to clinic in 3 months Orders: Orders Complete Blood Count Man Dif Today M05.9 - Rheumatoid arthritis with rheumatoid factor, unspecified Erythrocyte Sedimentation Rate Today M05.9 - Rheumatoid arthritis with rheumatoid factor, unspecified [id number] Dehydrogen Today M05.9 - Rheumatoid arthritis with rheumatoid factor, unspecified T Spot TB Today M05.9 - Rheumatoid arthritis with rheumatoid factor, unspecified Hepatitis B,C Profile Today M05.9 - Rheumatoid arthritis with rheumatoid factor, unspecified Alanine Aminotransferase Today M05.9 - Rheumatoid arthritis with rheumatoid factor, unspecified Aspartate Amino Transferase Today M05.9 - Rheumatoid arthritis with rheumatoid factor, unspecified Creatinine Today M05.9 - Rheumatoid arthritis with rheumatoid factor, unspecified C Reactive Protein Today M05.9 - Rheumatoid arthritis with rheumatoid factor, unspecified Coding Level of Care Code Est Pt Level 5 (46754) Complex EM visit Add On G2211 Diagnoses Seropositive rheumatoid arthritis M05.9 Time Spent (min) 40
[2024-11-28 12:47] VITALS: BP 100/80; PULSE 72; O2SAT 99; BMI 24.8
--- OUTSIDE RECORDS SUMMARY | 2024-11-28 13:12 | XMS_ITS | Data Portability ---
Author Organization [facility], [facility] Address [address] [place] [address] Care Team Providers Care Manager Garage Name Role Phone ELODIA HERNANDEZ Primary Care Provider ALEXY CUNNINGHAM Referring Provider Assessment Encounter Date Assessment Date Assessment LastModified by Organization Details LastModified Time 01/20/2016 01/20/2016 60 yo here for intial evaluation of prolapse. 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 We discussed the exam findings with the patient, and we discussed various management options for her pelvic organ prolapse. We discussed non-surgical options, including the use of a vaginal pessary rejiver has already trialed a pessary and does not wish to try again. We also discussed possible surgical treatment with laparoscopic sacrocolpopexy due to significant apical prolapse. The patientfeels her condition is bothersome enough to consider surgical correction. The risks and benefits of the proposed surgery (laparoscopic sacrocolpopexy, perineorrhaphy, probable sling)were discussed. She will return for additional testing and urodynamic testing with prolapse reduction as indicated. [email or web address] Not available 01/20/2016 14:19:42 03/11/2016 03/11/2016 Exam findings, urodynamic results,and treatment options were discussed in detail with the patient. Her symptoms and exam findings are consistent with stress urinary incontinence and pelvic organ prolapse. We discussed various surgical and nonsurgical management options including pessary use, pelvic floor rehabilitation, and reconstructive surgery. In terms of surgery, vaginal and laparoscopic approaches were considered. She feels that her condition is severe enough to consider surgical correction. Risks and benefits of the surgery (lap sacrocolpopexy, TOT sling, perinerraphy)were explained in detail and further information was provided. We discussed at length the 2010 FDA safety notification regarding transvaginal mesh to treat prolapse, and it's relevance to the proposed surgery. Specifically, we discussed the fact that transvaginal mesh placement for prolapse repair has been associated with certain risks not present with traditional non-mesh surgery for prolapse, including mesh exposure and erosion, but that other risks, including pain, dyspareunia, infection, bleeding and injury to adjacent organs, can be seen with any surgery for prolapse, whether mesh or other grafts are used or not. I explained that the reason we use synthetic mesh in certain cases (including advanced or recurrent prolapse) is because of the excellent termite control servicer success rates compared with traditional surgery. [email or web address] Not available 03/11/2016 13:44:51 04/28/2016 04/28/2016 The procedure (Laparoscopic sacrocolpopexy, cystoscopy, bilateral salpingectomy, transobturator sling, perineorrhaphy) and consent were reviewed. The pre-op and post-op instructions were explained in detail. Informational paperwork and prescriptions were given to the patient. All questions were answered. The patient has our contact information for any other questions or problems that come up before her scheduled surgery. trino Not available 04/28/2016 10:04:31 06/24/2016 06/24/2016 She is here for her post-op check. She is 7 weeks out from surgery. 05/05/16 S/P Laparoscopic sacrocolpopexy (Upsylon mesh); Altis sling, cystoscopy; Lap Lysis of Adhesions; Perineorrhaphy She is doing well and without complaints. She denies any prolapse, incontinence or voiding dysfunction. She had one minor episode of ABAD with sneezing recently, but generally she has been fine. [email or web address] Not available 06/24/2016 11:01:37 Plan of Treatment Reminders Order Date Submit Date Provider Last Modified By Organization Details Last Modified Time Details Appointments None recorded . Lab urinalys is, dipstick 2015 016 [email or web address] Not available 6 06:27:39 urinalys is, dipstick 2015 016 nnoor Not available 6 07:51:39 urinalys is, dipstick 2015 016 prosenblatt Not available 6 14:35:28 Referral None recorded . Procedures measurem ent of post-voi ding residual urine and/or bladder capacity (PROC) 2016 017 prosenblatt Not available 7 10:58:09 measurem ent of post-voi ding residual urine and/or bladder capacity (PROC) 2015 016 nnoor Not available 6 07:51:38 measurem ent of post-voi ding residual urine and/or bladder capacity (PROC) 2015 016 prosenblatt Not available 6 14:35:28 Surgeries laparosc opic sacrocol popexy (SURG) 2015 016 trino Not available 6 13:34:30 perineor rhaphy (SURG) 2015 016 prosenblatt Not available 6 13:44:49 tension- free vaginal tape obturato r (SURG) 2015 016 prosenblatt Not available 6 13:44:49 cystosco py (SURG) 2015 016 prosenblatt Not available 6 13:44:49 Imaging None recorded . Medication Orders None recorded . Patient TargetsNo targets recorded. Patient Instructions Encounter Date Encounter Id Patient Instructions Last Modified By Organization Details Last Modified Time 01/20/2016 [id number] (Counseling/coor dination of care composed greater than 50% of this visit. The total time spent with the patient was 45 minutes.) [email or web address] Not available 01/20/2016 14:35:28 02/18/2016 [id number] uroflowmetry* nnoor Not available 0 02/19/2016 07:51:39 uroflowmetry* nnoor Not available 07:51:39 03/11/2016 [id number] (Counseling/coor dination of care composed greater than 50% of this visit. The total time spent with the patient was 30 minutes.) [email or web address] Not available 03/11/2016 13:44:51 Reason for Referral None Reported. Results Created Date Observation Date Name Description Value Unit Range Abnormal Flag Note LastModifiedBy Organization Detail LastModifiedTime 06/24/19 17 06/24/2016 measu remen t of post- voidi ng resid ual urine and/o r bladd er capac ity (PROC ) Method Bladde r Scan Not Available [facility] Katharinazeinab mckeon Urogyn [id number] 06/24/2016 10:52:52 06/24/19 17 06/24/2016 measu remen t of post- voidi ng resid ual urine and/o r bladd er capac ity (PROC ) Value 96 Not Available [facility] Jane smith Urogyn 39589 06/24/2016 10:52:52 04/28/20 16 04/28/2016 urina lysis , dipst ick leukocytes neg Not Available [facility] Kalia schaffer Urogyn 09249 04/28/2016 09:27:28 04/28/20 16 04/28/2016 urina lysis , dipst ick nitrite neg Not Available [facility] 51074 04/28/2016 09:27:28 04/28/20 16 04/28/2016 urina lysis , dipst ick blood neg Not Available [facility] luis Urogyn 65784 04/28/2016 09:27:28 02/18/20 16 02/18/2016 urofl owmet ry* Voided Volume (ml) 470.6 Not Available [facility] [place] Urogyn 80583 02/18/2016 13:57:34 02/18/20 16 02/18/2016 urofl owmet ry* Voided Time (m:sec) :53.8 Not Available [facility] 26401 02/18/2016 13:57:34 02/18/20 16 02/18/2016 urofl owmet ry* Flow Time (m:sec) :53.7 Not Available [facility] 74104 02/18/2016 13:57:34 02/18/20 16 02/18/2016 urofl owmet ry* Qura Max (ml/sec) 21.6 Not Available [facility] 29920 02/18/2016 13:57:34 02/18/20 16 02/18/2016 urofl owmet ry* Qura Avg (ml/sec) 8.7 Not Available [facility] 02/18/2016 13:57:34 02/18/20 16 02/18/2016 urofl owmet ry* Time to Qura Max (m:sec) :11.7 Not Available [facility] Urogyn 16017 02/18/2016 13:57:34 02/18/20 16 02/18/2016 urofl owmet ry* Voided Volume (ml) 74.5 Not Available [facility] Urogyn 38754 02/18/2016 13:57:34 02/18/20 16 02/18/2016 urofl owmet ry* Voided Time (m:sec) :21.8 Not Available [facility] 17607 02/18/2016 13:57:34 02/18/20 16 02/18/2016 urofl owmet ry* Flow Time (m:sec) :18.2 Not Available [facility] 02/18/2016 13:57:34 02/18/20 16 02/18/2016 urofl owmet ry* Qura Max (ml/sec) 8.6 Not Available [facility] 56965 02/18/2016 13:57:34 02/18/20 16 02/18/2016 urofl owmet ry* Qura Avg (ml/sec) 4.0 Not Available [facility] 09509 02/18/2016 13:57:34 02/18/20 16 02/18/2016 urofl owmet ry* Time to Qura Max (m:sec) :5.8 Not Available [facility] Urogyn 77376 02/18/2016 13:57:34 02/18/20 16 02/18/2016 urina lysis , dipst ick leukocytes negati ve Not Available [facility] Urogyn 02/18/2016 13:57:34 02/18/20 16 02/18/2016 urina lysis , dipst ick nitrite negati ve Not Available [facility] Urogyn 79947 02/18/2016 13:57:34 02/18/20 16 02/18/2016 urina lysis , dipst ick blood negati ve Not Available [facility] n Urogyn 03911 02/18/2016 13:57:34 02/18/20 16 02/18/2016 measu remen t of post- voidi ng resid ual urine and/o r bladd er capac ity (PROC ) Method Cathet erizat ion Not Available [facility] n Urogyn [id number] 02/18/2016 13:57:34 02/18/20 16 02/18/2016 measu remen t of post- voidi ng resid ual urine and/o r bladd er capac ity (PROC ) Value 20mL Not Available [facility] Jane rn Urogyn 13376 02/18/2016 13:57:34 01/20/20 16 01/20/2016 urina lysis , dipst ick leukocytes neg Not Available [facility] Kalia schaffer Urogyn 64511 01/20/2016 13:12:11 01/20/20 16 01/20/2016 urina lysis , dipst ick nitrite neg Not Available [facility] Jane rn Urogyn 44439 01/20/2016 13:12:11 01/20/20 16 01/20/2016 urina lysis , dipst ick blood neg Not Available [facility] Jane rn Urogyn 78382 01/20/2016 13:12:11 01/20/20 16 01/20/2016 measu remen t of post- voidi ng resid ual urine and/o r bladd er capac ity (PROC ) Method Bladde r Scan Not Available [facility] linda Urogyn 85450 01/20/2016 13:12:11 01/20/20 16 01/20/2016 measu remen t of post- voidi ng resid ual urine and/o r bladd er capac ity (PROC ) Value 33ml Not Available [facility] Jane rn Urogyn 03005 01/20/2016 13:12:11 04/28/20 16 04/29/2016 methi cilli n resis tant staph yloco ccus aureu s, cultu re, unspe cifie d speci men staph surveil No growth of S. aureus . Not Available [facility] [address], [place], [address], 04/29/2016 14:06:42 05/05/20 16 05/05/2016 surgi skye patho logy study surgical specimens See Commen ts ----- ----- ----- ----- ----- ----- ----- ----- ----- ----- ----- ----- ----- ----- ----- ----- ----- ----- -- RUN DATE: 05/07 [facility] [place] [address] PAGE 1 RUN TIME: 1336 Speci men Inqui ry RUN USER: CARLOS ECH ----- ----- ----- ----- ----- ----- ----- ----- ----- ----- ----- ----- ----- ----- ----- ----- ----- ----- -- PATIE NT: Kei WING 369 LOC: N8 #: [id number] AGE/S X: 61/F ROOM: [facility] RE05/[address]: Florian Sharma M.D. : 04/01 BED: A DIS: 05/06 STATU S: DIS Haley TLOC: PACU ----- ----- ----- ----- ----- ----- ----- ----- ----- ----- ----- ----- ----- ----- ----- ----- ----- ----- -- SPEC #: [id number] RECD: 05/05-1 442 STATU S: CRISTINO RASMUSSEN #: [id number] LAKISHA: 05/05- SUBM DR: Gisela polanco M.D., Florian Haddad ENTER ED: 05/05-1 442 SP TYPE: SURG OTHR DR: ORDER ED: H&E, DAVID HARRINGTON, SMALL (4), GMUSM TISSU ES: 1. Fallo pian tube, NOS - RIGHT FALLO PIAN TUBE FINAL DIAGN OSIS RIGHT FALLO PIAN TUBE: - FALLO PIAN TUBE WITH CONGE STION . ELODIA LAZO M.D. GROSS DESCR IPTIO N PREOP ERATI VE DIAGN OSIS: Vagin al wall prola pse CLINI SKYE HISTO RY: OPERA TION: Lapar oscop ic sacro cervi copex y, cysto scopy , right salpi ngect cyril, herni orrha phy SPECI MENS: Right fallo pian tube POSTO PERAT KIARA DIAGN OSIS: Recei del fresh label ed righ t fallo pian tube is a 5 cm in lengt h x 0.[address] (post -fixa tion) . Secti oning revea ls an unrem arkab le cut surfa ce. Repre senta tive secti ons are submi tted as follo ws: 1-1 entir e fimbr iated end of fallo pian tube, 1-2 fallo pian tube. JDB 2015 HISTO LOGY: TISSU E ID BLK PCS LINDA LEV PROCE DURE DISPO SITIO N ____ _ ___ ___ ___ _ Fallo pian tube 1 2 2 ----- ----- ----- ----- ----- ----- ----- ----- ----- ----- ----- ----- ----- ----- ----- ----- ----- ----- -- Niki LAZO MD,SHELLI Villegas 05/07 9763 ----- ----- ----- ----- ----- ----- ----- ----- ----- ----- ----- ----- ----- ----- ----- ----- ----- ----- -- END OF REPOR T Not Available [facility] [address] [place], [address], 05/07/2016 13:37:33 Result Notes None recorded. 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 Procedures Surgical History Date Name Laterality Status Provider Name and Address Organization Details Recorded Time 05/05/20 16 LAPAROSCOPIC SACROCOLPOPEXY (SURG) completed Kristen Da Silva [facility] 05/10/2016 08:24:24 02/18/20 16 Urodynamic Studies completed Josee Romero [facility] Kalia schaffer [facility] 02/18/2016 14:43:09 01/20/20 16 Bulbocavernosis Reflex Latency Time completed Alpa Mccarty MD [address] [place], [address], [facility] 01/20/2016 14:02:54 Hysterectomy, vaginal completed Dara Park [facility] 01/20/2016 13:19:41 Imaging Results None recorded. Procedure Notes None recorded. Medical Equipment None Reported. Allergies Allergen ID Allergen Name Allergen Category Reaction Reaction Severity Criticality Documentation Date Start Date Code Code System Note Provider Name and Address Organization Details Recorded Time 157906 Substance with sulfonami de structure and antibacte rial mechanism of action (substanc e) medicatio n Not available Not available Not available 01/20/2016 78051 8005 SNOMED Dara Park josé manuel [facility] 6 13:19:40 [id number] penicilli n G Not available Not available Not available Not available 01/20/2016 7980 RxNorm Dara Hillsuli georges [facility] 6 13:19:40 Medications Name Sig Start Date Stop Date Status Note LastModified by Organization Details LastModified Time doxycycline hyclate 100 mg capsule active Not Available Not Available N ot Available clindamycin HCl 300 mg capsule active Not Available Not Available Not Available hydrocodone 5 mg-acetamino phen 325 mg tablet active Not Available Not Available Not Available ciprofloxaci n 250 mg tablet active Not Available Not Available Not Available oxycodone-ac etaminophen 5 mg-325 mg tablet Take 1 tablet(s) every 4 hours by oral route as needed for post-op discomfort if ibuprofen is not sufficient active Not Available Not Available N ot Available Macrodantin 100 mg capsule Take 1 capsule by mouth every day while catheter is in place, if you have a catheter at home 2015 active Not Available Not Available Not Avai lable lorazepam 1 mg tablet active Not Available Not Available No t Available ibuprofen 600 mg tablet Take 1 tablet(s) every 6 hours by oral route as needed for post-op discomfort active Not Available Not Available N ot Available lorazepam active Not Available Not Bonnie ilable Not Available Claritin active Not Available Not Avai lable Not Available Estrace 1gm twice weekly active Not Available Not Available No t Available vitamins A,C,E-zinc-c opper active Not Available Not Available Not Available Flonase Allergy Relief active Not Available Not Available Not Available Vitals Date Recorded Body height Systolic blood pressure Diastolic blood pressure Provider Name and Address Organization Details Last Updated DateTime 06/24/2016 165.1 cm 112 mm[Hg] 70 mm[Hg] Josee Daily [facility] 06/24/2016 10:52:45 Date Recorded Body weight Body height Body mass index (BMI) Systolic blood pressure Diastolic blood pressure Provider Name and Address Organization Details Last Updated DateTime 01/20/2016 05601.63 261 g 152.4 cm 29.9 kg/m2 118 mm[Hg] 70 mm[Hg] Dara Park [facility] 6 13:23:52 Date Recorded Body height Body mass index (BMI) Body weight Systolic blood pressure Diastolic blood pressure Provider Name and Address Organization Details Last Updated DateTime 04/28/2016 165.1 cm 25.3 kg/m2 76703.04 024 g 122 mm[Hg] 74 mm[Hg] Rut Benitez [facility] 6 09:25:51 Social History Question Answer Notes LastModified by Organizat ion Details LastModified Time Tobacco Smoking Status Never Smoker Dara georges [facility] 01/20/2016 13:19:41 What Type Of Diet Are You Following? REGULAR Information not available 01/20/2016 Have You Ever Had Violence Or Abuse Directed At You? No Information not available 01/20/2016 Exercise Yes Information no t available 01/20/2016 Marital Status Informatio n not available 01/20/2016 Seat Belts Used Routinely Yes Information not available 01/20/2016 Are You Sexually Active? No Information not available 01/20/2016 Do You Have Symptoms Associated With Zika Virus (fever, Rash, Joint Pain, Or Conjunctivitis)? No Information not available 01/20/2016 Have You Recently (within The Last 12 Weeks, Or During A Current ) Traveled To Or Lived In A Zika-affected Area? No Information not available 01/20/2016 Sex: Unknown Functional Status None recorded. Mental Status None recorded. Family History Relationship Description Onset Age of this Age Resolved Age Notes LastModified by Organization Details LastModified Time Mother Heart disease Not available 2015 13:19:41 Mother Diabetes mellitus Not available 2015 13:19:41 Mother Problem Cancer pancre atic Not available 01/20/2016 13:19:41 Medical History Condition Response Diabetes N Other N Thyroid Disease N High Blood Pressure N Lung Disorder or Asthma N Hyperlipidemia N Cancer N Kidney or Bladder Problems N Cardiac Disease N Anemia or Blood Disorder N GI Disorders N Neurologic Disease N None Reported N Psychiatric Disease Y Osteoporosis N Thrombophilias N Gynecological History Statement/Question Response Date of Last Mammogram 2015 Date of Last Bone Density Test none Date of Last Colonoscopy ? Date of Last Pap ? Menopause Y Obstetrics History GPAL:G 0 P 0 0 0 0 Past Encounters Encounter ID Performer Location Encounter Start Date Encounter Closed Date Diagnosis/Indication Diagnosis SNOMED-CT Code Diagnosis ICD10 Code Diagnosis Note [id number] Florian Amaro MD [facility] [address] [place] [address] 01/20/2016 13:05:36 01/20/2016 15:19:46 Incomplete emptying of urinary bladder 022868348 R39.14 Difficulty emptying bladder unless prolapse reduced Vaginal wall prolapse 39 3837611 N81.10 Stage 3 apical prolapse on exam. Has trialed pessary. Now desires surgical management . Discussed surgical management with laparoscop ic sacrocolpo pexy, perineorrh aphy, probable sling. Will obtain UDT prior to proceeding with surgery. Atrophy of vagina 844662 009 N95.2 Currently using estrace twice weekly [id number] Florian Amaro MD [facility] [address] [place] [address] 02/18/2016 12:54:45 02/18/2016 13:39:22 Vaginal wall prolapse 159355321 N81.10 Stage 3 apical prolapse on exam. Has trialed pessary. Now desires surgical management . Discussed surgical management with laparoscop ic sacrocolpo pexy, perineorrh aphy, probable sling. Will obtain UDT prior to proceeding with surgery. UDT Report 02/18/16 w/ prolapse reduction: no DO, +HORTICULTURALIST at Max cap 500cc w/ mcgregor out, MUCP 43 (no ISD). H/o stage 3 vault prolapse. Given +USUI only at max capacity, may consider TVT-O during prolapse surgery. [id number] Florian Amaro MD [facility] [address] [place] [address] 03/11/2016 13:05:32 03/11/2016 14:01:18 Vaginal wall prolapse 418007594 N81.10 Stage 3 apical prolapse on exam. Has trialed pessary. Now desires surgical management . Discussed surgical management with laparoscop ic sacrocolpo pexy, perineorrh aphy, probable sling. Will obtain UDT prior to proceeding with surgery. UDT Report 02/18/16 w/ prolapse reduction: no DO, +HORTICULTURALIST at Max cap 500cc w/ mcgregor out, MUCP 43 (no ISD). H/o stage 3 vault prolapse. Given +USUI only at max capacity, may consider TVT-O during prolapse surgery. [id number] Florian Amaro MD [facility] [address] [place] [address] 04/28/2016 09:14:29 04/28/2016 11:00:39 Incomplete emptying of urinary bladder 495179877 R39.14 Vaginal wall prolapse 39 6283018 N81.10 UDT Report 02/18/16 w/ prolapse reduction: no DO, +HORTICULTURALIST at Max cap 500cc w/ mcgregor out, MUCP 43 (no ISD). H/o stage 3 vault prolapse. Atrophy of vagina 151285 009 N95.2 [id number] Florian Amaro MD [facility] [address] [place] [address] 06/24/2016 10:09:21 06/24/2016 11:02:40 Mixed urinary incontinence 742319927 N39.46 improved after Altis sling - will keep track of any ABAD leakage. Prolapse o f vaginal vault after hysterectomy 82569877 N99.3 05/05/16 S/P Laparoscop ic sacrocolpo pexy (Upsylon mesh); Altis sling, cystoscopy ; Lap Lysis of Adhesions; Perineorrh aphy excellent pelvic floor support Health Concerns Section Related Observation LastModified by Organization Detai ls LastModified Time None Recorded Concern Status LastModified by Organization Details LastModified Time None Recorded Advance Directives Directive None Recorded Payers Insurance Date Sequence Insurance Name Policy Number Policy Stevens Covered Member ID Stevens Member ID Guarantor Name 12/06/2016 1 [place] [facility] [id number] Yuli Herring [id number] Yuli Herring Notes Date Note Type Note Provider Name and Address Organization Details Recorded Time 01/20/2016 text/html 60 yo here for initial evaluation of prolapse. Had TVH in 2003 for apical prolapse, symptoms improved. States that over past two years feels increasing bulge, can see bulge and has to push back in. Had a trial of pessary within last year. Did not continue with it due to discomfort and urinary leakage. Denies leakage of urine at this time. Reports when wearing pessary had significant leakage. Reports has to reduce bulge to urinate. Rare leakage of small amount of liquid stool-once every other month. Denies any vaginal bleeding. Uses estrace twice a week. Had one full term vaginal delivery of 10lb baby. Had several laparoscopies for ? ovarian cysts. Had ex lap via pfannensteil incision for left sided mass ? ectopic. Florian Amaro MD [address], [place], [address], [facility] 01/20/2016 14:35:31 04/28/2016 text/html 01/20/16: 60 yo G 1P1 here for initial evaluation of prolapse. Had TVH in 2003 for apical prolapse, symptoms improved. States that over past two years feels increasing bulge, can see bulge and has to push back in. Had a trial of pessary within last year. Did not continue with it due to discomfort and urinary leakage. Denies leakage of urine at this time. Reports when wearing pessary had significant leakage. Reports has to reduce bulge to urinate. Rare leakage of small amount of liquid stool-once every other month. Denies any vaginal bleeding. Uses estrace twice a week. Had one full term vaginal delivery of 10lb baby. Had several laparoscopies for ? ovarian cysts. Had ex lap via pfannensteil incision for left sided mass ? ectopic. [facility] 04/28/2016 10:05:26 OBGyn Episode No OBEpisode recorded.
--- OUTSIDE RECORDS SUMMARY | 2024-11-28 13:12 | XMS_ITS | Data Portability ---
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 [email or web address] Not available 01/20/2016 14:19:42 03/11/2016 03/11/2016 Exam [...] recurrent prolapse) is because of the excellent consultant luxury and auto. vice president jaguar brand (ex ) success rates compared with traditional surgery. [email or web address] [...] By Organization Details Last Modified Time 01/20/2016 [id number] (Counseling/coor dination of care composed greater than 50% of this visit. The total time spent with the patient was 45 minutes.) [email or web address] Not available 01/20/2016 14:35:28 02/18/2016 [id number] uroflowmetry* nnoor Not available 0 02/19/2016 07:51:39 uroflowmetry* nnoor Not available 07:51:39 03/11/2016 478400 (Counseling/coor dination of care composed greater than [...] ) Method Bladde r Scan Not Available [facility] Katharinazeinab mckeon Urogyn 15180 06/24/2016 10:52:52 06/24/19 17 06/24/2016 measu remen t of post- voidi ng resid ual urine and/o r bladd er capac ity (PROC ) Value 96 Not Available [facility] Jane smith Urogyn 61930 06/24/2016 10:52:52 04/28/20 16 04/28/2016 urina lysis , dipst ick leukocytes neg Not Available [facility] Kalia schaffer Urogyn 05378 04/28/2016 09:27:28 04/28/20 16 04/28/2016 urina lysis , dipst ick nitrite neg Not Available [facility] 46997 04/28/2016 09:27:28 04/28/20 16 04/28/2016 urina lysis , dipst ick blood neg Not Available [facility] luis Urogyn 03825 04/28/2016 09:27:28 02/18/20 16 02/18/2016 urofl owmet ry* Voided Volume (ml) 470.6 Not Available Robert [place] Urogyn 15959 02/18/2016 13:57:34 02/18/20 16 02/18/2016 urofl owmet ry* Voided Time (m:sec) :53.8 Not Available [facility] 10012 02/18/2016 13:57:34 02/18/20 16 02/18/2016 urofl owmet ry* Flow Time (m:sec) :53.7 Not Available [facility] 75598 02/18/2016 13:57:34 02/18/20 16 02/18/2016 urofl owmet ry* Qura Max (ml/sec) 21.6 Not Available [facility] 92392 02/18/2016 13:57:34 02/18/20 16 02/18/2016 urofl owmet ry* Qura Avg (ml/sec) 8.7 Not Available [facility] 02/18/2016 13:57:34 02/18/20 16 02/18/2016 urofl owmet ry* Time to Qura Max (m:sec) :11.7 Not Available [facility] Urogyn 43953 02/18/2016 13:57:34 02/18/20 16 02/18/2016 urofl owmet ry* Voided Volume (ml) 74.5 Not Available [facility] Urogyn 94433 02/18/2016 13:57:34 02/18/20 16 02/18/2016 urofl owmet ry* Voided Time (m:sec) :21.8 Not Available [facility]yn 70860 02/18/2016 13:57:34 02/18/20 16 02/18/2016 urofl owmet ry* Flow Time (m:sec) :18.2 Not Available [facility] 02/18/2016 13:57:34 02/18/20 16 02/18/2016 urofl owmet ry* Qura Max (ml/sec) 8.6 Not Available [facility] 05211 02/18/2016 13:57:34 02/18/20 16 02/18/2016 urofl owmet ry* Qura Avg (ml/sec) 4.0 Not Available [facility] 30072 02/18/2016 13:57:34 02/18/20 16 02/18/2016 urofl owmet ry* Time to Qura Max (m:sec) :5.8 Not Available [facility] Urogyn 70547 02/18/2016 13:57:34 02/18/20 16 02/18/2016 urina lysis , dipst ick leukocytes negati ve Not Available [facility] Urogyn 02/18/2016 13:57:34 02/18/20 16 02/18/2016 urina lysis , dipst ick nitrite negati ve Not Available [facility] Urogyn 80074 02/18/2016 13:57:34 02/18/20 16 02/18/2016 urina lysis , dipst ick blood negati ve Not Available [facility] n Urogyn 08216 02/18/2016 13:57:34 02/18/20 16 02/18/2016 measu remen t of post- voidi ng resid ual urine and/o r bladd er capac ity (PROC ) Method Cathet erizat ion Not Available [facility] n Urogyn 20759 02/18/2016 13:57:34 02/18/20 16 02/18/2016 measu remen t of post- voidi ng resid ual urine and/o r bladd er capac ity (PROC ) Value 20mL Not Available [facility] Jane rn Urogyn 25758 02/18/2016 13:57:34 01/20/20 16 01/20/2016 urina lysis , dipst ick leukocytes neg Not Available [facility] Kalia schaffer Urogyn 29364 01/20/2016 13:12:11 01/20/20 16 01/20/2016 urina lysis , dipst ick nitrite neg Not Available [facility] Jane rn Urogyn 23871 01/20/2016 13:12:11 01/20/20 16 01/20/2016 urina lysis , dipst ick blood neg Not Available [facility] Jane rn Urogyn 88613 01/20/2016 13:12:11 01/20/20 16 01/20/2016 measu remen t of post- voidi ng resid ual urine and/o r bladd er capac ity (PROC ) Method Bladde r Scan Not Available [facility] linda Urogyn 60884 01/20/2016 13:12:11 01/20/20 16 01/20/2016 measu remen t of post- voidi ng resid ual urine and/o r bladd er capac ity (PROC ) Value 33ml Not Available [facility] Jane rn Urogyn 05350 01/20/2016 13:12:11 04/28/20 16 04/29/2016 methi cilli n resis tant staph yloco ccus aureu s, cultu re, unspe cifie d speci men staph surveil No growth of S. aureus . Not Available [facility] [address], [place], [address], 04/29/2016 14:06:42 05/05/20 16 05/05/2016 surgi skye patho logy study surgical specimens See Commen ts ----- ----- ----- ----- ----- ----- ----- ----- ----- ----- ----- ----- ----- ----- ----- ----- ----- ----- -- RUN DATE: 05/07 [facility] [place] [address] PAGE 1 RUN TIME: 1336 Speci men Inqui ry RUN USER: CARLOS ECH ----- ----- ----- ----- ----- ----- ----- ----- ----- ----- ----- ----- ----- ----- ----- ----- ----- ----- -- PATIE NT: Kei WING 369 LOC: N8 #: [id number] AGE/S X: 61/F ROOM: [facility] RE05/[address]: Florian Sharma M.D. : 04/01 BED: A DIS: 05/06 STATU S: DIS Haley TLOC: PACU ----- ----- ----- ----- ----- ----- ----- ----- ----- ----- ----- ----- ----- ----- ----- ----- ----- ----- -- SPEC #: [id number] RECD: 05/05-1 442 STATU S: CRISTINO RASMUSSEN #: [id number] LAKISHA: 05/05- SUBM DR: Gisela polanco [...] ----- -- Niki LAZO MD,SHELLI Villegas 05/07 7705 ----- ----- ----- ----- ----- ----- ----- ----- ----- ----- ----- ----- ----- ----- ----- ----- ----- ----- -- END OF REPOR T Not Available [facility] [address] [place], [address], 05/07/2016 13:37:33 Result Notes None recorded. 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 Procedures Surgical History Date Name Laterality Status Provider Name and Address Organization Details Recorded Time 05/05/20 16 LAPAROSCOPIC SACROCOLPOPEXY (SURG) completed Kristen Da Silva [facility] [facility] [employer] [facility] 05/10/2016 08:24:24 02/18/20 16 Urodynamic Studies completed Josee Romero [facility] Kalia schaffer [facility] 02/18/2016 14:43:09 01/20/20 16 Bulbocavernosis Reflex Latency Time completed Alpa Mccarty MD [address], [address], [facility] 01/20/2016 14:02:54 Hysterectomy, vaginal completed Dara Park [employer] [employer] [facility] [employer] [facility] 01/20/2016 13:19:41 Imaging Results None recorded. Procedure Notes None recorded. Medical Equipment None Reported. Allergies Allergen ID Allergen Name Allergen Category Reaction Reaction Severity Criticality Documentation Date Start Date Code Code System Note Provider Name and Address Organization Details Recorded Time 024278 Substance with sulfonami de structure and antibacte rial mechanism of action (substanc e) medicatio n Not available Not available Not available 01/20/2016 27344 8004 SNOMED Dara Park josé manuel [employer] [employer] [facility] [employer] [facility] 6 13:19:40 545836 penicilli n G Not available Not available Not available Not available 01/20/2016 7980 RxNorm Dara Hlilsuli georges [facility] 6 13:19:40 Medications Name Sig [...] cm 112 mm[Hg] 70 mm[Hg] Josee Daily [facility] 06/24/2016 10:52:45 Date Recorded Body weight Body height Body mass index (BMI) Systolic blood pressure Diastolic blood pressure Provider Name and Address Organization Details Last Updated DateTime 01/20/2016 02540.63 261 g 152.4 cm 29.9 kg/m2 118 mm[Hg] 70 mm[Hg] Dara Park [facility] [employer] [facility] 6 13:23:52 Date Recorded Body height Body mass index (BMI) Body weight Systolic blood pressure Diastolic blood pressure Provider Name and Address Organization Details Last Updated DateTime 04/28/2016 165.1 cm 25.3 kg/m2 04798.04 024 g 122 mm[Hg] 74 mm[Hg] Rut Benitez [facility] 6 09:25:51 Social History Question Answer Notes LastModified by Organizat ion Details LastModified Time Tobacco Smoking Status Never Smoker Dara georges [facility] [employer] [facility] 01/20/2016 13:19:41 What Type Of [...] SNOMED-CT Code Diagnosis ICD10 Code Diagnosis Note [id number] Florian Amaro MD [facility] [address] [place] [address] 01/20/2016 13:05:36 01/20/2016 15:19:46 Incomplete emptying of urinary bladder 332238866 R39.14 Difficulty emptying bladder unless prolapse reduced Vaginal wall prolapse 39 1096258 N81.10 Stage 3 apical prolapse on exam. Has trialed pessary. Now desires surgical management . Discussed surgical management with laparoscop ic sacrocolpo pexy, perineorrh aphy, probable sling. Will obtain UDT prior to proceeding with surgery. Atrophy of vagina 915217 009 N95.2 Currently using estrace twice weekly [id number] Florian Amaro MD [facility] [address] [place] [address] 02/18/2016 12:54:45 02/18/2016 13:39:22 Vaginal wall prolapse 072639232 N81.10 Stage 3 apical prolapse on exam. Has trialed pessary. Now desires surgical management . Discussed surgical management with laparoscop ic sacrocolpo pexy, perineorrh aphy, probable sling. Will obtain UDT prior to proceeding with surgery. UDT Report 02/18/16 w/ prolapse reduction: no DO, +DRAWING CHECKER at Max cap 500cc w/ mcgregor out, MUCP 43 (no ISD). H/o stage 3 vault prolapse. Given +USUI only at max capacity, may consider TVT-O during prolapse surgery. [id number] Florian Amaro MD [facility] [address] [place] [address] 03/11/2016 13:05:32 03/11/2016 14:01:18 Vaginal wall prolapse 164376286 N81.10 Stage 3 apical prolapse on exam. Has trialed pessary. Now desires surgical management . Discussed surgical management with laparoscop ic sacrocolpo pexy, perineorrh aphy, probable sling. Will obtain UDT prior to proceeding with surgery. UDT Report 02/18/16 w/ prolapse reduction: no DO, +DRAWING CHECKER at Max cap 500cc w/ mcgregor out, MUCP 43 (no ISD). H/o stage 3 vault prolapse. Given +USUI only at max capacity, may consider TVT-O during prolapse surgery. [id number] Florian Amaro MD [facility] [address] [place] [address] 04/28/2016 09:14:29 04/28/2016 11:00:39 Incomplete emptying of urinary bladder 951975581 R39.14 Vaginal wall prolapse 39 2489440 N81.10 UDT Report 02/18/16 w/ prolapse reduction: no DO, +DRAWING CHECKER at Max cap 500cc w/ mcgregor out, MUCP 43 (no ISD). 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 Prolapse o f vaginal vault after hysterectomy 36008960 N99.3 05/05/16 S/P Laparoscop ic sacrocolpo pexy [...] Member ID Guarantor Name 12/06/2016 1 [place] [facility] [place] [place] [id number] Yuli Herring [id number] Yuli Herring Notes Date Note Type [...] mass ? ectopic. Florian Amaro MD [address], [place], [address], [facility] 01/20/2016 14:35:31 04/28/2016 [...]
--- OUTSIDE RECORDS SUMMARY | 2024-11-28 13:12 | XMS_ITS | Patient Health Record ---
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 Name Role Phone ELODIA HERNANDEZ Primary Care Provider Manasa Sexton [phone] Allergies Allergen (clinical drug ingredient) Drug/Non Drug Allergy documented on EMR Reaction Allergy Type Onset Date Status Substance with sulfonamide structure and antibacterial mechanism of action (substance) SULFA (uncoded) HIVES Allergy Active Reason For Referral No Information Medications Medication SIG (Take, Route, Frequency, Duration) Notes Start Date End Date Status Estrace Vaginal Cream 42.5GM Vaginal 1GM 2X A WEEK; Duration: -3 Kyaw-MJ 10/03/2012 Not-Taking Flonase Active LORazepam 0.5 MG 1 tablet as needed Orally @ HS prn Active Estrace 0.1 MG/GM 1 GRAM Vaginal THRIC E A WEEK; Duration: 90 days 04/07/2015 Not-Taki ng Problems Problem Type SNOMED Code ICD Code Onset Dates Problem Status W/U Status Risk Notes Problem Prolapse of vaginal pierre without uterine prolapse (794129343) Prolapse of vaginal pierre without mention of uterine prolapse (618.0) Active confirmed Problem 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) Rectocele (N81.6) Active confirmed Problem Cystocele (490542556) Cystocele, unspecified (N81.10) Active confirmed Problem Hypothyroidism (97727436) Unspecified hypothyroidism (244.9) Active confirmed Major Problem Hyperlipidemia (35575947) Other and unspecified hyperlipidemia (272.4) Active confirmed Major Problem Midline cystocele (532379071) Cystocele without mention of uterine prolapse, midline (618.01) Active confirmed Diag Problem Herniation of rectum into vagina (349860296) Rectocele without mention of uterine prolapse (618.04) Active confirmed Diag Problem Symptomatic menopausal or female climacteric states (627.2) Active confirmed Diag Problem Gynecological examination normal (395096446923533) Routine gynecological examination (V72.31) Active confirmed Major Problem Screening for malignant neoplasm of colon (979945988) Special screening for malignant neoplasms, colon (V76.51) Active confirmed Major Plan Of Treatment No Information Insurance Providers Payer Name Payer Address Payer Phone Subscriber Number Group Number Insured Name Patient Relationship to Insured Coverage Start Date Coverage End Date [employer] [place] [address] [place] [phone] [id number] RICARDO VIVAR Self - patient is the insured Medical (General) History Medical History History ICD Code Menopausal and female climacteric states N95.1 Cystocele, midline N81.11 Rectocele N81.6 Other hyperlipidemia E78.4 Prolapse of vaginal pierre without mentio n of uterine prolapse 618.0 Surgical History Surgery Date(Month/Year) Appendectomy Colonoscopy Left Oopherectomy MAURO/BSO SLING PROCEDURE WITH DR. SCHAEFER IN [place] Hospitalization History Reason Date(Month/Year) 1 Vaginal Delivery See Surgical Hx
== END 2024-11-28 13:41 | disposition home or self-care (01) ==
LOC: HO.RHES 12:44
PROVIDERS: PCP Internal Medicine; Visit Provider Internal Medicine Rheumatology
DX: M05.79 Rheumatoid arthritis with rheumatoid factor of multiple sites without organ or systems involvement (principal)
CPT/HCPCS: 99215; G2211

== ENCOUNTER 2024-11-28 12:43 | Outpatient (REF) | payer MEDICARE, SELFPAY ==
[2024-11-28 14:52] LABS: Baso%MD 0.6 %; Eos%MD 1.3 %; Hematocrit 41.8 % (37.0-47.0); Hemoglobin 14.2 g/dl (12.0-16.0); IG%MD 0.2 %; Lymph%MD 34.3 %; Mean Corpuscular HGB Conc 34.0 g/dl (31.0-35.0); Mean Corpuscular Hemoglobin 30.5 pg (27.0-33.0); Mean Corpuscular Volume 89.9 fL (80.0-98.0); Mono%MD 7.3 %; NRBC Abs Auto 0.000 X10*3/uL (0.0-0.012); NRBC Pct Auto 0.0 /100WBC (0.0-0.2); Neut%MD 56.3 %; Platelet Count 315 X10*3/uL (160-400); Red Blood Count 4.65 X10*6/uL (4.20-5.50); White Blood Count 6.3 X10*3/uL (4.8-10.8)
[2024-11-28 15:05] LABS: Alanine Aminotransferase 16 U/L (0-31); Aspartate Amino Transferase 24 U/L (5-31); Estimated Glomerular Filt Rate > 60
[2024-11-28 15:45] LABS: Atypical Lymph Absolute Manual 0.1 x10*3/uL; Atypical Lymphs Percent Manual 1 % (0-6); Basophils Abs Manual 0.1 X10*3/uL (0.0-0.2); Basophils Percent Manual 1 % (0-2); Eosinophils Absolute Manual 0.1 X10*3/uL (0.0-0.4); Eosinophils Percent Manual 1 % (0-4); Lymphocytes Absolute Manual 1.7 X10*3/uL (1.2-4.9); Lymphocytes Percent Manual 27 % (20-40); Monocytes Absolute Manual 0.6 X10*3/uL (0.1-1.2); Monocytes Percent Manual 10 % (2-11); Neutrophils Percent Manual 60 % (45-73)
[2024-11-28 15:47] LABS: Band Neutrophils Percent 0 % (3-5); Neutrophils Absolute Manual 3.8 X10*3/uL (2.0-8.3); RBC Morphology NORMAL
[2024-11-29 08:39] LABS: HBS Num1 227.80 mIU/mL (0-7.99); HBc Num1 0.09 S/CO (0.00-0.79); HBsAGNum1 0.33 S/CO (0.00-0.99); Hepatitis B Surface Antigen Negative (Negative); ~HepC Num1 0.10 S/CO (0.00-0.79); ~Hepatitis B Surface Antibody REACTIVE (Nonreactive); ~Hepatitis C Antibody Nonreactive (Nonreactive)
[2024-12-03 01:18] LABS: TS Negative Control Passed; TS Panel A 0; TS Panel B 0; TS Positive Control Passed; TSpotTB Negative (Negative)
[2024-12-04 21:03] LABS: Glucose-6-Phosphate Dehydrogen 25.6 U/g Hgb (7.0-20.5)
== END 2024-11-28 12:44 | disposition home or self-care (01) ==
LOC: HO.HKASLDS 12:43
PROVIDERS: PCP Internal Medicine; Visit Provider Internal Medicine Rheumatology
DX: M05.9 Rheumatoid arthritis with rheumatoid factor, unspecified (principal); M79.641 Pain in right hand; M79.642 Pain in left hand
CPT/HCPCS: 36415; 82565; 82955; 84450; 84460; 85007; 85027; 85652; 86140; 86481; 86704; 86706; 86803; 87340; 99212